=== PATIENT | female | born 2000 | race Caucasian/White ===

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

== ENCOUNTER 2019-02-07 02:00 | Inpatient (IN) | payer OTHER ==
[2019-02-07] MEDS ORDERED: METHYLERGONOVINE 0.2 MG/ML 1 ML AMP IM PRN (03:03)
[2019-02-07] MEDS ORDERED: OXYTOCIN 10 UNIT/ML 1 ML VIAL IM PRN (03:03)
[2019-02-07] MEDS ORDERED: LIDOCAINE 0.5% (PF) 5 MG/ML (50 ML SDV) SQ PRN (03:03)
[2019-02-07] MEDS ORDERED: CARBOPROST TROMETHAMINE 250 MCG/ML 1 ML AMP IM PRN (03:03)
[2019-02-07] MEDS ORDERED: TERBUTALINE 1 MG/ML VIAL SQ PRN (03:03)
[2019-02-07] MEDS ORDERED: LACTATED RINGERS 1,000 ML IV SCH (03:15)
[2019-02-07] MEDS ORDERED: OXYTOCIN 30 UNITS/500 ML NS 30 UNIT in SALINE 1 500ML.BAG IV SCH (03:15)
[2019-02-07 03:19] VITALS: BMI 38.6
[2019-02-07 03:28] LABS: Basophils % (A) 0 %; Eosinophils # (A) 0.3 k/uL (0-0.7); Eosinophils % (A) 2 %; HCT 43.4 % (34.0-46.0); HGB 14.6 gm/dL (11.4-16.0); Lymphocytes # (A) 2.2 k/uL (1.0-4.8); Lymphocytes % (A) 19 %; MCH 30.4 pg (25.0-35.0); MCHC 33.8 g/dL (31.0-37.0); Mean Platelet Volume 7.5; Monocytes # (A) 0.4 k/uL (0-1.0); Monocytes % (A) 3 %; Neutrophils # (A) 8.8 k/uL (1.3-7.7); Neutrophils % (A) 74 %; Platelet Count 192 k/uL (150-450); RBC 4.82 m/uL (3.80-5.40); RDW 13.6 % (11.5-15.5); WBC 11.9 k/uL (4.0-11.0)
[2019-02-07 03:34] LABS: Appearance,Urine Cloudy (Clear); Bilirubin,Urine Negative (Negative); Blood,Urine Moderate (Negative); Color,Urine Yellow; Glucose,Urine (UA) Negative (Negative); Ketones,Urine Negative (Negative); Leukocyte Esterase,Urine Large (Negative); Mucus,Urine Rare /hpf; Nitrite,Urine Negative (Negative); PH, Urine 6.5 (5.0-8.0); Protein,Urine 1+ (Negative); RBC,Urine >182 /hpf (0-5); Specific Gravity,Urine 1.021 (1.001-1.035); Squamous Epithelial Cell,Urine 15 /hpf (0-4); Urobilinogen,Urine <2.0 mg/dL (<2.0); WBC,Urine 35 /hpf (0-5)
[2019-02-07 03:35] LABS: ALT 21 U/L (9-52); AST 21 U/L (14-36); African American GFR (CKD) >90 (>60 ml/min/1.73 sqM); Blood Urea Nitrogen 13 mg/dL (7-17); LDH 489 U/L (313-618); Uric Acid 6.2 mg/dL (3.7-7.4)
[2019-02-07 03:43] LABS: Amphetamine Screen,Urine Not Detected (NotDetected); Barbiturate Screen,Urine Not Detected (NotDetected); Benzodiazepines Screen,Urine Not Detected (NotDetected); Cocaine Screen,Urine Not Detected (NotDetected); Methadone Screen, Urine Not Detected (NotDetected); Opiate Screen,Urine Not Detected (NotDetected); Oxycodone Screen, Urine Not Detected (NotDetected); Phencyclidine Screen,Urine Not Detected (NotDetected); Tricyclic Antidepressant,Urine Not Detected (NotDetected); Urn Cannabinoid Scrn Detected (NotDetected)
[2019-02-07 03:46] LABS: Creatinine,Urine Random 97.5 mg/dL
[2019-02-07] MEDS ORDERED: ROPIVACAINE 5MG/ML 20ML VIAL ONE (07:21)
[2019-02-07] MEDS ORDERED: SODIUM CHLORIDE 0.9% 100 ML BAG ONE (07:21)
[2019-02-07] MEDS ORDERED: fentaNYL (PF) 50 MCG/ML 5 ML AMP ONE (07:21)
--- NOTE | 2019-02-07 07:41 | P.HPOB ---
History of Present Illness H&P Date: 02/07/19 Chief Complaint: Bleeding since Friday This patient is a 19-year-old 1 para 0 female estimated date of confinement 02/14/2019 estimated gestational age 39 weeks who presents to labor and delivery with complaints of bleeding that began after her exam in the office on Friday. Patient states that she had some bleeding after exam is increased in flow over the last day or so. care is per Dr. Bhat appears to be complicated by daily marijuana use. Patient states that she has a medical marijuana card and she's been taking it for her scoliosis. otherwise appears uncomplicated. Patient's blood pressure today is elevated on admission. Preeclampsia blood work is negative and she does deny any symptoms at this time. Review of Systems Genitourinary: Reports Menstruation: Reports as per HPI, Reports amenorrhea Past Medical History Past Medical History: No Reported History Additional Past Medical History / Comment(s): Patient reports a history of scoliosis for which she takes medical marijuana for. History of Any Multi-Drug Resistant Organisms: MRSA Date of last positivie culture/infection: 2010 MDRO Source:: skin Past Surgical History: Ear Surgery, Tonsillectomy Additional Past Surgical History / Comment(s): adenoids Past Anesthesia/Blood Transfusion Reactions: No Reported Reaction Past Psychological History: No Psychological Hx Reported Smoking Status: Never smoker Past Alcohol Use History: None Reported Past Drug Use History: None Reported - Past Family History Mother Family Medical History: No Reported History Medications and Allergies Home Medications Medication Instructions Recorded Confirmed Type Pnv,Calcium 72/Iron/Folic Acid 1 each PO DAILY 12/28/18 02/07/19 History [ Plus Tablet] Allergies Allergy/AdvReac Type Severity Reaction Status Date / Time No Known Allergies Allergy Verified 02/07/19 02:09 Exam Vital Signs Resp BP 02/07/19 02:50 18 136/94 Intake and Output 02/06/19 02/07/19 02/07/19 22:59 06:59 14:59 Intake Total 1000 Balance 1000 Intake: Intake, IV Titration 1000 Amount Lactated Ringers 1,000 ml 1000 @ 125 mls/hr IV .Q8H [facility] Rx#:[id number] Other: # Voids 3 Weight 89.811 kg - OBG Physical Exam Abdomen: bowel sounds normal, no diffuse tenderness, no bruit present, no guarding noted, no hepatomegaly, no splenomegaly, no mass Vulva: both: normal Vagina: normal moisture, no discharge Cervix: no lesion (Cervix is 2 cm dilated 90% effaced.), no discharge Uterus: enlarged (Fundal height in the office was 38 cm) Results blood work shows she is A positive, rubella immune, RPR nonreactive, hepatitis B negative, HIV is nonreactive, Glucola was normal, most recent ultrasound showed 5 lbs. 7 oz. which is the 41st percentile. Toxicology screen is positive twice for THC. Result Diagrams: 02/07/19 03:10 02/07/19 03:10 Abnormal Lab Results - Last 24 Hours (Table) 02/07/19 02/07/19 02/07/19 Range/Units 02:20 02:20 02:20 WBC (4.0-11.0) k/uL Neutrophils # (1.3-7.7) k/uL Urine Appearance Cloudy H (Clear) Urine Protein 1+ H (Negative) Urine Blood Moderate H (Negative) Ur Leukocyte Esterase Large H (Negative) Urine RBC >182 H (0-5) /hpf Urine WBC 35 H (0-5) /hpf Ur Squamous Epith Cells 15 H (0-4) /hpf Urine Mucus Rare H (None) /hpf U Random Total Protein 26 H (<12) mg/dL U Marijuana (THC) Screen Detected H (NotDetected) 02/07/19 Range/Units 03:10 WBC 11.9 H (4.0-11.0) k/uL Neutrophils # 8.8 H (1.3-7.7) k/uL Urine Appearance (Clear) Urine Protein (Negative) Urine Blood (Negative) Ur Leukocyte Esterase (Negative) Urine RBC (0-5) /hpf Urine WBC (0-5) /hpf Ur Squamous Epith Cells (0-4) /hpf Urine Mucus (None) /hpf U Random Total Protein (<12) mg/dL U Marijuana (THC) Screen (NotDetected) Assessment and Plan Assessment: This is a 19-year-old 1 para 0 female 39 weeks gestation admitted to labor and delivery with complaints of bleeding for approximately 2 days. This bleeding appears to be traumatic in nature from her most recent cervical exam and there is no evidence of abruption or other sources of her bleeding. Patient however is found to have persistent elevated blood pressures consistent with gestational hypertension and for this reason I recommended she proceed with delivery at this time. There is no evidence of preeclampsia. Plan is induction of labor and anticipate vaginal delivery. Patient also was counseled about her marijuana use and appears that she's been taking this on a daily basis throughout the . She understands in general this is not recommended in and we do not know the side effects, short-term or long-term. We'll also obtain a social work faculty member consult to ensure safe home environment. 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
[2019-02-07] MEDS ORDERED: diphenhydrAMINE 25 MG CAP PO PRN (12:02)
[2019-02-07] MEDS ORDERED: SIMETHICONE 80 MG CHEWABLE PO PRN (12:02)
[2019-02-07] MEDS ORDERED: LANOLIN CREAM 5 GM TUBE TOPICAL PRN (12:02)
[2019-02-07] MEDS ORDERED: WITCH HAZEL 1 EACH MED..PAD TOPICAL PRN (12:02)
[2019-02-07] MEDS ORDERED: ACETAMINOPHEN TAB 325 MG TAB PO PRN (12:02)
[2019-02-07] MEDS ORDERED: HYDROCORTISONE 2.5% RECTAL CREAM 30 GM TUBE RECTAL PRN (12:02)
[2019-02-07] MEDS ORDERED: BENZOCAINE/MENTHOL SPRAY 1 GM/SPRAY AEROSOL TOPICAL PRN (12:02)
[2019-02-07] MEDS ORDERED: diphenhydrAMINE 50 MG/ML 1 ML VIAL IVP PRN (12:02)
[2019-02-07] MEDS ORDERED: ZOLPIDEM 5 MG TAB PO PRN (12:02)
[2019-02-07] MEDS ORDERED: BISACODYL 10 MG SUPP RECTAL PRN (12:02)
--- NOTE | 2019-02-07 12:06 | P.PROBDLV ---
Vaginal Delivery Note - . Vaginal Delivery Note: Normal vaginal delivery viable male infant Apgars 9 and 9 delivery time is 1150 hrs. Please see dictated H&P for intimate details of this patient's admission. Brief summary this pleasant 19-year-old 1 para 0 female estimated gestational age 39 weeks presents to labor and delivery complaining of bleeding. Patient was found to be probably in early labor but also had elevated blood pressures. Preeclampsia labs were negative. Artificial rupture membranes done at 2 cm for clear fluid. Labor is augmented with Pitocin. Patient's labor progresses and she does get an epidural for pain control. Patient gets to complete pushes and pushes the head to the perineum. Posterior perineum is supported we have controlled delivery of 's head over the intact perineum. Mouth and nares are bulb suctioned. There is no evidence of a nuchal cord. With gentle downward traction we then have deliver the anterior and posterior shoulder and rest this infant's body. This is a vigorous viable male infant Apgars are 9 and 9 delivery time is 1150 hrs. After delivery of the the infant's later mother's abdomen after the cord is done pulsating is doubly clamped and cut. It does appear to be trivascular. The placenta is then spontaneously delivered intact. Inspection of the perineum shows a first-degree laceration is repaired with 3-0 Vicryl suture easily [id number] stitch. There is bilateral periurethral lacerations did not require repair. All counts are correct 3. EBL's 100 mL there are no complications. Infant and mother stable delivery room.
[2019-02-07] MEDS ORDERED: OXYTOCIN 20 UNITS/1000 ML NS 1,000 ML IV SCH (12:15)
[2019-02-07] MEDS: SENNOSIDES-DOCUSATE SODIUM 1 EACH TAB PO SCH (19:56)
[2019-02-07] MEDS: IBUPROFEN 600 MG TAB PO PRN (23:53)
--- NOTE | 2019-02-08 06:41 | P.PNOBGVD ---
Subjective - Subjective Patient reports: Reports appetite normal, Reports voiding normally, Reports pain well controlled, Reports ambulating normally : doing well Objective - Latest Vital Signs Latest vital signs: Vital Signs Temp Pulse Resp BP 02/07/19 23:55 97.9 F 88 18 133/78 02/07/19 19:52 98.4 F 90 16 141/83 02/07/19 15:44 98.6 F 90 16 126/61 02/07/19 14:07 102 H 16 136/75 02/07/19 13:37 16 135/60 02/07/19 13:07 96 16 124/70 02/07/19 12:52 105 H 16 109/78 02/07/19 12:37 100 16 125/76 02/07/19 12:22 98.3 F 102 H 16 124/68 02/07/19 12:07 113 H 16 127/85 Intake and Output 02/07/19 02/07/19 02/08/19 14:59 22:59 06:59 Intake Total 2000 600 Output Total 100 Balance 1900 600 Intake: IV 2000 Lactated Ringers 1,000 ml 2000 @ 125 mls/hr IV .Q8H [facility] Rx#:[id number] Oral 600 Output: Estimated Blood Loss 100 Other: # Voids 1 3 - Exam Lungs: bilateral: normal Chest: Normal S1, Normal S2 Extremities: Present: normal Abdomen: Present: normal appearance, soft Uterus: Present: normal, firm Assessment and Plan Assessment: day #1. Patient is resting without new complaints and wishes to go home. Vital signs are stable she is afebrile. Uterus is firm nontender and she is having normal lochia. I impression this is a normal course. Plan is to continue routine care and discharge home later today. (1) 39 weeks gestation of Current Visit: Yes Status: Acute Code(s): Z3A.39 - 39 WEEKS GESTATION OF SNOMED Code(s): 36963994 (2) Gestational hypertension Current Visit: Yes Status: Acute Code(s): O13.9 - GESTATIONAL HTN W/O SIGNIFICANT PROTEINURIA, UNSP TRIMESTER SNOMED Code(s): 647663765 (3) Substance abuse affecting in third trimester, antepartum Current Visit: Yes Status: Acute Code(s): O99.323 - DRUG USE COMPLICATING , THIRD TRIMESTER SNOMED Code(s): 99904143
--- NOTE | 2019-02-08 06:45 | P.DS ---
Providers Date of admission: 02/07/19 02:50 Expected date of discharge: 02/08/19 Attending physician: Abeba Bhat Primary care physician: Stated None - Discharge Diagnosis(es) (1) 39 weeks gestation of Current Visit: Yes Status: Acute (2) Gestational hypertension Current Visit: Yes Status: Acute (3) Substance abuse affecting in third trimester, antepartum Current Visit: Yes Status: Acute Hospital Course: Please see dictated H&P for intimate details of this patient's admission. Brief summary this is a 19-year-old 1 para 0 female 39 weeks gestation admitted in labor and delivery for persistent vaginal bleeding after an examination and was found not to be in labor but had some elevated blood pressures. Patient's preeclampsia evaluation was negative and we'll proceed with induction of labor. Patient was on have a vaginal delivery viable male infant. Please see dictated delivery note. day #1 patient was doing well wishes to go home. Patient's felt stable for discharge home follow up with Dr. Bhat and 6 weeks. Procedures: Induction of labor normal vaginal delivery Patient Condition at Discharge: Good Plan - Discharge Summary New Discharge Prescriptions: New Ibuprofen [Motrin] 600 mg PO Q6HR PRN #30 tab PRN Reason: Mild Pain Or Fever >= 100.5 No Action Pnv,Calcium 72/Iron/Folic Acid [ Plus Tablet] 1 each PO DAILY Discharge Medication List Pnv,Calcium 72/Iron/Folic Acid [ Plus Tablet] 1 each PO DAILY 12/28/18 [History] Ibuprofen [Motrin] 600 mg PO Q6HR PRN #30 tab 02/08/19 [Rx] Follow up Appointment(s)/Referral(s): Abeba Bhat DO [Doctor of Osteopathic Medicine] - 6 Weeks Patient Instructions/Handouts: Vaginal Delivery (DC) Activity/Diet/Wound Care/Special Instructions: No intercourse or anything per vagina for 6 weeks. Please call if any fever, chills, excessive vaginal bleeding, and/or abdominal pain. Discharge Disposition: HOME SELF-CARE
[2019-02-08] MEDS: SENNOSIDES-DOCUSATE SODIUM 1 EACH TAB PO SCH ×2 (10:06→22:38)
[2019-02-08] MEDS ORDERED: LABETALOL 100 MG TAB PO PRN (12:24)
[2019-02-08] MEDS: IBUPROFEN 600 MG TAB PO PRN (19:44)
[2019-02-08 19:47] VITALS: RESP 16
--- NOTE | 2019-02-09 05:59 | P.PNOBGVD ---
Subjective - Subjective Patient reports: Reports appetite normal, Reports voiding normally, Reports pain well controlled, Reports ambulating normally : doing well Objective - Latest Vital Signs Latest vital signs: Vital Signs Temp Pulse Resp BP BP 02/09/19 00:00 98.2 F 76 16 130/80 02/08/19 19:46 98.3 F 83 16 136/83 02/08/19 15:11 98.2 F 84 18 144/83 02/08/19 13:39 88 143/79 02/08/19 12:06 97.8 F 88 18 132/90 151/92 02/08/19 08:00 98.5 F 84 16 126/78 Intake and Output 02/08/19 02/08/19 02/09/19 14:59 22:59 06:59 Other: # Voids 1 1 2 - Exam Lungs: bilateral: normal Chest: Normal S1, Normal S2 Extremities: Present: normal Abdomen: Present: normal appearance, soft Uterus: Present: normal, firm Assessment and Plan Assessment: day #2. Patient had 1 elevated blood pressure yesterday and therefore I asked her to stay another day for observation. Blood pressures have been fine therefore she is felt to be stable for discharge home. Patient discharge home follow up in the office. (1) 39 weeks gestation of Current Visit: Yes Status: Acute Code(s): Z3A.39 - 39 WEEKS GESTATION OF SNOMED Code(s): 43760075 (2) Gestational hypertension Current Visit: Yes Status: Acute Code(s): O13.9 - GESTATIONAL HTN W/O SIGNIFICANT PROTEINURIA, UNSP TRIMESTER SNOMED Code(s): 911356546 (3) Substance abuse affecting in third trimester, antepartum Current Visit: Yes Status: Acute Code(s): O99.323 - DRUG USE COMPLICATING , THIRD TRIMESTER SNOMED Code(s): 47397398
[2019-02-09] MEDS: SENNOSIDES-DOCUSATE SODIUM 1 EACH TAB PO SCH (08:04)
[2019-02-09 08:08] VITALS: BP 130/87; PULSE 84; TEMP 98.1
== END 2019-02-09 13:35 | disposition home or self-care (01) | DRG 807 ==
LOC: FBPOP 02:00 → 4FBP 02:50
PROVIDERS: ADMIT Obstetrics & Gynecology; ATTEND Obstetrics & Gynecology
PROC: 10E0XZZ Delivery of Products of Conception, External Approach (ICD-10-PCS; principal; 2019-02-07)
PROC: 0HQ9XZZ Repair Perineum Skin, External Approach (ICD-10-PCS; 2019-02-07)
PROC: 00HU33Z Insertion of Infusion Device into Spinal Canal, Percutaneous Approach (ICD-10-PCS; 2019-02-07)
PROC: 3E0R3NZ Introduction of Analgesics, Hypnotics, Sedatives into Spinal Canal, Percutaneous Approach (ICD-10-PCS; 2019-02-07)
DX: O13.4 Gestational [pregnancy-induced] hypertension without significant proteinuria, complicating childbirth (principal); Z37.0 Single live birth; F12.10 Cannabis abuse, uncomplicated; O99.324 Drug use complicating childbirth; O99.89 Other specified diseases and conditions complicating pregnancy, childbirth and the puerperium; M41.9 Scoliosis, unspecified; Z3A.39 39 weeks gestation of pregnancy; O70.0 First degree perineal laceration during delivery; O71.82 Other specified trauma to perineum and vulva; Z71.51 Drug abuse counseling and surveillance of drug abuser; Z98.890 Other specified postprocedural states; Z86.14 Personal history of Methicillin resistant Staphylococcus aureus infection
CPT/HCPCS: 59025; 80306; 81001; 82565; 82570; 83615; 84112; 84156; 84450; 84460; 84520; 84550; 85025; 86850; 86900; 86901; 99213

== ENCOUNTER → 2019-04-05 | Outpatient (CLI) | payer OTHER | END | disposition home or self-care (01) | LOC: LABWHC1 13:50 | PROVIDERS: ATTEND Obstetrics & Gynecology | DX: N92.6 Irregular menstruation, unspecified (principal) | CPT/HCPCS: 36415; 84702 ==

== ENCOUNTER 2019-06-18 18:01 | Emergency (ER) | payer OTHER ==
[2019-06-18 18:11] VITALS: RESP 18
[2019-06-18] MEDS ORDERED: FLUTICASONE 50MCG/SPRAY NASAL 16GM EA NOSTRIL STA (19:02)
--- NOTE | 2019-06-18 19:25 | XR ---
EXAMINATION TYPE: XR chest 2V DATE OF EXAM: 06/18/2019 COMPARISON: None HISTORY: Cough TECHNIQUE: Frontal and lateral views of the chest are obtained. FINDINGS: Heart and mediastinum are normal. Lungs are clear. Diaphragm is normal. Bony thorax appear s normal. IMPRESSION: Normal chest.
--- NOTE | 2019-06-18 19:47 | ED ---
General Adult HPI - General Chief complaint: Upper Respiratory Infection Stated complaint: Cough Time Seen by Provider: 06/18/19 18:20 Source: patient, RN notes reviewed, old records reviewed Mode of arrival: ambulatory Limitations: no limitations - History of Present Illness Initial comments: 19-year-old female patient with no pertinent past medical history presents the chief complaint of approximately 2 days of cough, congestion, waxing and waning body aches. Patient states that she cannot be due to nexplanon. Denies any dysuria. Denies any fevers. Denies any other complaints. Systemic: Pt denies fatigue, fever/chills, rash. Pt denies weakness, night sweats, weight loss. Neuro: Pt denies headache, visual disturbances, syncope or pre-syncope. HEENT: Pt denies ocular discharge or irritation, otalgia, rhinorrhea, pharyngitis or notable lymphadenopathy. Cardiopulmonary: Pt denies chest pain, SOB, heart palpitations, dyspnea on exer tion. Abdominal/GI: Pt denies abdominal pain, n/v/d. : Pt denies dysuria, burning w/ urination, frequency/urgency. Denies new onset urinary or bowel incontinence. MSK: Pt denies myalgia, loss of strength or function in extremities. Neuro: Pt denies new onset weakness, paresthesias. - Related Data Home Medications Medication Instructions Recorded Confirmed Pnv,Calcium 72/Iron/Folic Acid 1 each PO DAILY 12/28/18 02/07/19 [ Plus Tablet] Previous Rx's Medication Instructions Recorded Ibuprofen [Motrin] 600 mg PO Q6HR PRN #30 tab 02/08/19 Allergies Allergy/AdvReac Type Severity Reaction Status Date / Time No Known Allergies Allergy Verified 06/18/19 18:11 Review of Systems ROS Statement: Those systems with pertinent positive or pertinent negative responses have been documented in the HPI. ROS Other: All systems not noted in ROS Statement are negative. Past Medical History Past Medical History: No Reported History Additional Past Medical History / Comment(s): history of scoliosis for which she takes medical marijuana for. History of Any Multi-Drug Resistant Organisms: MRSA Date of last positivie culture/infection: 2010 MDRO Source:: skin Past Surgical History: Ear Surgery, Tonsillectomy Additional Past Surgical History / Comment(s): adenoids Past Anesthesia/Blood Transfusion Reactions: No Reported Reaction Past Psychological History: No Psychological Hx Reported Smoking Status: Current every day smoker Past Alcohol Use History: Occasional Past Drug Use History: Marijuana - Past Family History Mother Family Medical History: No Reported History General Exam - General Exam Comments Initial Comments: Constitutional: NAD, AOX3, Pt has pleasant affect. HEENT: NC/AT, trachea midline, neck supple, no lymphadenopathy. Posterior pharynx non erythematous, without exudates. External ears appear normal, without discharge. Mucous membranes moist. Eyes PERRLA, EOM intact. There is no scleral icterus. No pallor noted. Cardiopulmonary: RRR, no murmurs, rubs or gallops, no JVD noted. Lungs CTAB in anterior and posterior . No peripheral edema. Abdominal exam: Abdomen soft and non-distended. Abdomen non-tender to palpation in all 4 quadrants. Bowel sounds active in LLQ. No hepatosplenomegaly. No ecchymosis Neuro: CN II-XII intact. No nuchal rigidity. No raccon eyes, no nesbitt sign, no hemotympanum. No cervical spinal tenderness. MSK: No posterior calf tenderness bilaterally, homans sign negative bilaterally. Posterior tibialis and radial pulse +2 bilaterally. Sensation intact in upper and lower extremities. Full active ROM in upper and lower extremities, 5/5 stregnth. Limitations: no limitations Course Vital Signs 06/18/19 06/18/19 18:08 18:11 Temperature 97.8 F Pulse Rate 104 H Respiratory 18 18 Rate Blood Pressure 128/83 O2 Sat by Pulse 98 Oximetry Medical Decision Making - Medical Decision Making 19-year-old female patient presents to ED chief complaint of cough, congestion, myalgias. Report has gone for approximately 2 days. Denies any other complaints. Physical exam did not slightly pathology. Influenza negative. Chest: Negative. Patient likely experiencing a viral syndrome. Will be started on Flonase and supportive care. Case discussed with Dr. Ortega. - Lab Data Lab Results 06/18/19 Range/Units 18:45 Influenza Type A RNA Not Detected (Not Detectd) Influenza Type B (PCR) Not Detected (Not Detectd) Disposition Clinical Impression: Viral syndrome Disposition: HOME SELF-CARE Condition: Stable Instructions (If sedation given, give patient instructions): Viral Syndrome (ED) Additional Instructions: Patient to adhere to previously discussed treatment plan and will take medication(s) as directed. Patient to follow up with PCP in 1-2 days. Patient to return to ED if symptoms do not improve. Follow-up with primary care provider Friday. Use Tylenol Motrin as needed. Drink lots of fluids. Use Flonase as directed for sinus congestion. Return to ER if condition worsens. Is patient prescribed a controlled substance at d/c from ED?: No Referrals: None,Stated [Primary Care Provider] - 1-2 days
[2019-06-18 20:00] VITALS: BP 117/90; PULSE 92; TEMP 98.1
== END 2019-06-18 20:00 | disposition home or self-care (01) ==
LOC: EC 18:01
DX: B34.9 Viral infection, unspecified (principal); F17.200 Nicotine dependence, unspecified, uncomplicated
CPT/HCPCS: 71046; 87502; 99284

== ENCOUNTER 2019-08-25 15:47 | Emergency (ER) | payer OTHER ==
[2019-08-25 15:55] VITALS: TEMP 98
--- NOTE | 2019-08-25 16:32 | ED ---
ENT HPI - General Chief complaint: ENT Stated complaint: Ear ache, headache Time Seen by Provider: 08/25/19 16:17 Source: patient Mode of arrival: ambulatory Limitations: no limitations - History of Present Illness Initial comments: 19-year-old female presenting for congestion ear pain slight headache. Patient states that last week she has had some congestion very mild cough however for the past 2 days she has had increasing left ear pain denies fevers denies body aches. Patient denies any specific sick contacts but states that her daughter has had congestion and cough as well. Patient denies any hearing loss denies dizziness swelling behind the ear denies abdominal pain nausea vomiting . Patient denies current headache states it comes and goes denies neck stiffness or photophobia. Patient denies this being the worse headache of her life or sudden onset. Review of systems negative upon arrival patient appears well and nontoxic afebrile - Related Data Previous Rx's Medication Instructions Recorded Azithromycin [Zithromax Z-pack] 0 mg PO DIRECTED #6 tab 08/25/19 Allergies Allergy/AdvReac Type Severity Reaction Status Date / Time No Known Allergies Allergy Verified 08/25/19 15:55 Review of Systems ROS Statement: Those systems with pertinent positive or pertinent negative responses have been documented in the HPI. ROS Other: All systems not noted in ROS Statement are negative. Past Medical History Past Medical History: No Reported History Additional Past Medical History / Comment(s): history of scoliosis for which she takes medical marijuana for. History of Any Multi-Drug Resistant Organisms: MRSA Date of last positivie culture/infection: 2010 MDRO Source:: skin Past Surgical History: Ear Surgery, Tonsillectomy Additional Past Surgical History / Comment(s): adenoids Past Anesthesia/Blood Transfusion Reactions: No Reported Reaction Past Psychological History: No Psychological Hx Reported Smoking Status: Current every day smoker Past Alcohol Use History: Occasional Past Drug Use History: Marijuana - Past Family History Mother Family Medical History: No Reported History General Exam - General Exam Comments Initial Comments: General: The patient is awake and alert, in no distress, and does not appear acutely ill. Eye: +3 mm pupils are equal, round and reactive to light, extra-ocular m ovements are intact. No nystagmus. There is normal conjunctiva bilaterally. No signs of icterus. No photophobia Ears, nose, mouth and throat: There are moist mucous membranes and no oral lesions. Oropharynx was not erythematous there is no tonsillar enlargement exudates or lesions. Uvula midline. Right tympanic membranes are not erythematous or is no effusions bulging or retraction. Left TM is erythematous no bulging or peforation noted, howver partial view given cerumen>E AC WNL b/l. No tenderness to palpation of the mastoid. No anterior cervical lymphadenop athy. Rhinorrhea, clear and bilateral nares. No tripoding, no drooling. Neck: The neck is supple, there is no tenderness or JVD. No nuchal rigidity negative Cardiovascular: There is a regular rate and rhythm. No murmur, rub or gallop is appreciated. Respiratory: Lungs are clear to auscultation, respirations are non-labored, breath sounds are equal. No wheezes, stridor, rales, or rhonchi. No retractions or abdominal breathing. Gastrointestinal: Soft, non-distended, non-tender abdomen without masses or organomegaly noted. There is no rebound or guarding present. Bowel sounds are unremarkable. Musculoskeletal: Normal ROM, no tenderness. Strength 5/5. Sensation intact. Radial pulses equal bilaterally 2+. Neurological: A&O x 3. CN II-XII intact grossly, There are no obvious motor or sensory deficits. Coordination appears grossly intact. Speech appears normal, no muffling. Skin: Skin is warm and dry and no rashes or lesions are noted. No extremity edema Psychiatric: Cooperative Limitations: no limitations Course Vital Signs 08/25/19 08/25/19 15:52 17:02 Temperature 98.0 F Pulse Rate 99 88 Respiratory 20 18 Rate Blood Pressure 127/90 128/88 O2 Sat by Pulse 99 98 Oximetry Medical Decision Making - Medical Decision Making 19-year-old female presenting for upper respiratory symptoms left ear pain findings consistent with otitis media. No meningismus. She is very nontoxic in appearance no tenderness to palpation of the mastoid. Patient states she has an amoxicillin ALLERGY, she states she had a very bad rash. Patient lung clear, no fevers. Will be treated with azithromycin and given PCP f/u. She is agreeable with this care plan discharge at this time Disposition Clinical Impression: Left ear pain, Otitis media, Congestion of nasal sinus Disposition: HOME SELF-CARE Condition: Good Instructions (If sedation given, give patient instructions): Ear Infection (ED) Additional Instructions: Please use medication as discussed. Please follow-up with family doctor in the next 2 days. Please return to emergency room if the symptoms increase or worsen or for any other concerns. Prescriptions: Azithromycin [Zithromax Z-pack] 0 mg PO DIRECTED #6 tab Is patient prescribed a controlled substance at d/c from ED?: No Referrals: None,Stated [Primary Care Provider] - 1-2 days Time of Disposition: 16:32
[2019-08-25 17:03] VITALS: BP 128/88; PULSE 88; RESP 18
== END 2019-08-25 17:02 | disposition home or self-care (01) ==
LOC: EC 15:47
DX: H66.92 Otitis media, unspecified, left ear (principal); R09.81 Nasal congestion; R05 Cough; F17.200 Nicotine dependence, unspecified, uncomplicated; Z88.0 Allergy status to penicillin; Z86.14 Personal history of Methicillin resistant Staphylococcus aureus infection; Z87.39 Personal history of other diseases of the musculoskeletal system and connective tissue; Z90.89 Acquired absence of other organs; Z98.890 Other specified postprocedural states
CPT/HCPCS: 99283

== ENCOUNTER 2020-02-15 12:18 | Emergency (ER) | payer OTHER ==
[2020-02-15 12:26] VITALS: RESP 16
[2020-02-15] MEDS ORDERED: MORPHINE SULFATE 2 MG/ML SYRINGE IVP ONE (12:36)
[2020-02-15] MEDS ORDERED: ONDANSETRON 4 MG/2 ML VIAL IVP STA (12:36)
[2020-02-15] MEDS ORDERED: SODIUM CHLORIDE 0.9% 500 ML 500 ML IV STA (12:36)
[2020-02-15 13:09] LABS: Basophils % (A) 0 %; Eosinophils # (A) 0.2 k/uL (0-0.7); Eosinophils % (A) 2 %; HCT 46.8 % (34.0-46.0); HGB 15.6 gm/dL (11.4-16.0); Lymphocytes # (A) 1.6 k/uL (1.0-4.8); Lymphocytes % (A) 20 %; MCH 29.8 pg (25.0-35.0); MCHC 33.3 g/dL (31.0-37.0); MCV 89.5 fL (80.0-100.0); Mean Platelet Volume 7.3; Monocytes # (A) 0.3 k/uL (0-1.0); Monocytes % (A) 3 %; Neutrophils # (A) 5.8 k/uL (1.3-7.7); Neutrophils % (A) 73 %; Platelet Count 295 k/uL (150-450); RBC 5.23 m/uL (3.80-5.40); RDW 13.7 % (11.5-15.5)
[2020-02-15 13:16] LABS: ALT 40 U/L (4-34); AST 32 U/L (14-36); African American GFR (CKD) >90 (>60 ml/min/1.73 sqM); Albumin 4.4 g/dL (3.5-5.0); Alkaline Phosphatase 82 U/L (38-126); Anion Gap 8 mmol/L; Blood Urea Nitrogen 11 mg/dL (7-17); Calcium 9.4 mg/dL (8.4-10.2); Carbon Dioxide 22 mmol/L (22-30); Chloride 108 mmol/L (98-107); Glucose 97 mg/dL (74-99); Non-African American GFR(CKD) >90 (>60 ml/min/1.73 sqM); Potassium 4.7 mmol/L (3.5-5.1); Sodium 138 mmol/L (137-145); Total Bilirubin 0.3 mg/dL (0.2-1.3); Total Protein 7.5 g/dL (6.3-8.2)
--- NOTE | 2020-02-15 13:20 | ED ---
Abdominal Pain HPI - General Source: patient, RN notes reviewed Mode of arrival: ambulatory Limitations: no limitations <Fady Chicas - Last Filed: 02/15/20 13:19> <Zackary Giang - Last Filed: 02/15/20 14:44> - General Chief Complaint: Abdominal Pain Stated Complaint: pelvic/abd pain Time Seen by Provider: 02/15/20 12:30 - History of Present Illness Initial Comments: 20-year-old female presents emergency Department chief complaint of lower abdominal pain. Patient stated it started this morning shortly after going to the bathroom. She denies any dysuria hematuria, constipation or diarrhea. She has minimal nausea no vomiting her last mental cycle was 2 weeks ago denies any chance . She said no prior abdominal surgeries. Denies any back pain, flank pain fevers or chills. She states nothing makes it feel better or worse she does not take any medications for this. (Fady Chicas) - Related Data Previous Rx's Medication Instructions Recorded Azithromycin [Zithromax Z-pack] 0 mg PO DIRECTED #6 tab 08/25/19 Allergies Allergy/AdvReac Type Severity Reaction Status Date / Time No Known Allergies Allergy Verified 02/15/20 12:26 Review of Systems ROS Other: All systems not noted in ROS Statement are negative. <Fady Chicas - Last Filed: 02/15/20 13:19> ROS Other: All systems not noted in ROS Statement are negative. <Zackary Giang - Last Filed: 02/15/20 14:44> ROS Statement: Those systems with pertinent positive or pertinent negative responses have been documented in the HPI. Past Medical History Past Medical History: No Reported History Additional Past Medical History / Comment(s): history of scoliosis for which she takes medical marijuana for. History of Any Multi-Drug Resistant Organisms: MRSA Date of last positivie culture/infection: 2010 MDRO Source:: skin Past Surgical History: Ear Surgery, Tonsillectomy Additional Past Surgical History / Comment(s): adenoids Past Anesthesia/Blood Transfusion Reactions: No Reported Reaction Past Psychological History: No Psychological Hx Reported Smoking Status: Current every day smoker Past Alcohol Use History: Occasional Past Drug Use History: Marijuana - Past Family History Mother Family Medical History: No Reported History <Fady Chicas - Last Filed: 02/15/20 13:19> General Exam Limitations: no limitations General appearance: alert, in no apparent distress Head exam: Present: atraumatic, normocephalic, normal inspection Eye exam: Present: normal appearance, PERRL, EOMI. Absent: scleral icterus, conjunctival injection, periorbital swelling Respiratory exam: Present: normal lung sounds bilaterally. Absent: respiratory distress, wheezes, rales, rhonchi, stridor Cardiovascular Exam: Present: regular rate, normal rhythm, normal heart sounds. Absent: systolic murmur, diastolic murmur, rubs, gallop, clicks GI/Abdominal exam: Present: soft, tenderness (Mild to moderate lower abdominal tenderness), normal bowel sounds. Absent: distended, guarding, rebound, rigid Back exam: Absent: CVA tenderness (R), CVA tenderness (L) Neurological exam: Present: alert, oriented X3 Skin exam: Present: warm, dry, intact, normal color. Absent: rash <Fady Chicas - Last Filed: 02/15/20 13:19> Course Vital Signs 02/15/20 12:24 Temperature 98.2 F Pulse Rate 98 Respiratory 16 Rate Blood Pressure 120/78 O2 Sat by Pulse 98 Oximetry Medical Decision Making - Lab Data Result diagrams: 02/15/20 12:52 02/15/20 12:52 <Fady Chicas - Last Filed: 02/15/20 13:19> - Lab Data Result diagrams: 02/15/20 12:52 02/15/20 12:52 <Zacakry Giang P - Last Filed: 02/15/20 14:44> - Medical Decision Making Patient was signed out to me by GILBERTO Shrestha pending ultrasound report. I did reevaluate the patient and took a thorough history. Pain started this morning and is generalized across her lower abdomen. No fevers. No diarrhea. Patient has had a period 2 weeks ago. Physical exam reveals a minimally tender lower abdomen that is generalized in nature. CBC CMP is unremarkable. Urinalysis is contaminated with skin cells. This will be cultured. Patient does not have any symptoms of dysuria. Ultrasound shows findings that could represent ovarian cyst. They will also be involuting follicle within the left ovary. Follow-up MRI is indicated. Arterial and venous flow seen between both ovaries. Patient is sitting much better at this time. Patient be discharged home to follow up with primary care and her [facility]. She will return here for any worsening symptoms. I did offer a work note which she states she is much better and is planning on going to work. (Zackary Giang) - Lab Data Lab Results 02/15/20 02/15/20 02/15/20 Range/Units 12:52 12:52 12:52 WBC 8.0 (3.8-10.6) k/uL RBC 5.23 (3.80-5.40) m/uL Hgb 15.6 (11.4-16.0) gm/dL Hct 46.8 H (34.0-46.0) % MCV 89.5 (80.0-100.0) fL MCH 29.8 (25.0-35.0) pg MCHC 33.3 (31.0-37.0) g/dL RDW 13.7 (11.5-15.5) % Plt Count 295 (150-450) k/uL Neutrophils % 73 % Lymphocytes % 20 % Monocytes % 3 % Eosinophils % 2 % Basophils % 0 % Neutrophils # 5.8 (1.3-7.7) k/uL Lymphocytes # 1.6 (1.0-4.8) k/uL Monocytes # 0.3 (0-1.0) k/uL Eosinophils # 0.2 (0-0.7) k/uL Basophils # 0.0 (0-0.2) k/uL Sodium (137-145) mmol/L Potassium (3.5-5.1) mmol/L Chloride (98-107) mmol/L Carbon Dioxide (22-30) mmol/L Anion Gap mmol/L BUN (7-17) mg/dL Creatinine (0.52-1.04) mg/dL Est GFR (CKD-EPI)AfAm (>60 ml/min/1.73 sqM) Est GFR (CKD-EPI)NonAf (>60 ml/min/1.73 sqM) Glucose (74-99) mg/dL Calcium (8.4-10.2) mg/dL Total Bilirubin (0.2-1.3) mg/dL AST (14-36) U/L ALT (4-34) U/L Alkaline Phosphatase (38-126) U/L Total Protein (6.3-8.2) g/dL Albumin (3.5-5.0) g/dL Lipase (23-300) U/L Urine Color Yellow Urine Appearance Turbid H (Clear) Urine pH 6.5 (5.0-8.0) Ur Specific Aubrey 1.037 H (1.001-1.035) Urine Protein 2+ H (Negative) Urine Glucose (UA) Negative (Negative) Urine Ketones Negative (Negative) Urine Blood Trace H (Negative) Urine Nitrite Negative (Negative) Urine Bilirubin Negative (Negative) Urine Urobilinogen 2.0 (<2.0) mg/dL Ur Leukocyte Esterase Large H (Negative) Urine RBC 16 H (0-5) /hpf Urine WBC 30 H (0-5) /hpf Ur Squamous Epith Cells 199 H (0-4) /hpf Urine Bacteria Few H (None) /hpf Urine Mucus Many H (None) /hpf Urine HCG, Qual Not Detected (Not Detectd) 02/15/20 Range/Units 12:52 WBC (3.8-10.6) k/uL RBC (3.80-5.40) m/uL Hgb (11.4-16.0) gm/dL Hct (34.0-46.0) % MCV (80.0-100.0) fL MCH (25.0-35.0) pg MCHC (31.0-37.0) g/dL RDW (11.5-15.5) % Plt Count (150-450) k/uL Neutrophils % % Lymphocytes % % Monocytes % % Eosinophils % % Basophils % % Neutrophils # (1.3-7.7) k/uL Lymphocytes # (1.0-4.8) k/uL Monocytes # (0-1.0) k/uL Eosinophils # (0-0.7) k/uL Basophils # (0-0.2) k/uL Sodium 138 (137-145) mmol/L Potassium 4.7 (3.5-5.1) mmol/L Chloride 108 H (98-107) mmol/L Carbon Dioxide 22 (22-30) mmol/L Anion Gap 8 mmol/L BUN 11 (7-17) mg/dL Creatinine 0.52 (0.52-1.04) mg/dL Est GFR (CKD-EPI)AfAm >90 (>60 ml/min/1.73 sqM) Est GFR (CKD-EPI)NonAf >90 (>60 ml/min/1.73 sqM) Glucose 97 (74-99) mg/dL Calcium 9.4 (8.4-10.2) mg/dL Total Bilirubin 0.3 (0.2-1.3) mg/dL AST 32 (14-36) U/L ALT 40 H (4-34) U/L Alkaline Phosphatase 82 (38-126) U/L Total Protein 7.5 (6.3-8.2) g/dL Albumin 4.4 (3.5-5.0) g/dL Lipase 39 (23-300) U/L Urine Color Urine Appearance (Clear) Urine pH (5.0-8.0) Ur Specific Aubrey (1.001-1.035) Urine Protein (Negative) Urine Glucose (UA) (Negative) Urine Ketones (Negative) Urine Blood (Negative) Urine Nitrite (Negative) Urine Bilirubin (Negative) Urine Urobilinogen (<2.0) mg/dL Ur Leukocyte Esterase (Negative) Urine RBC (0-5) /hpf Urine WBC (0-5) /hpf Ur Squamous Epith Cells (0-4) /hpf Urine Bacteria (None) /hpf Urine Mucus (None) /hpf Urine HCG, Qual (Not Detectd) Disposition <Fady Chicas M - Last Filed: 02/15/20 13:19> Is patient prescribed a controlled substance at d/c from ED?: No Time of Disposition: 14:44 <Zackary Giang P - Last Filed: 02/15/20 14:44> Clinical Impression: Abdominal pain, Ruptured cyst of ovary Disposition: HOME SELF-CARE Condition: Good Instructions (If sedation given, give patient instructions): Abdominal Pain (ED), Ruptured Ovarian Cyst (ED) Additional Instructions: Please follow-up with your [facility] in 1-2 days. If you have any worsening symptoms or fevers return here to the emergency room. Referrals: Jj Santillan MD [REFERRING] - 1-2 days
[2020-02-15 13:48] LABS: Appearance,Urine Turbid (Clear); Bacteria,Urine Few /hpf; Bilirubin,Urine Negative (Negative); Blood,Urine Trace (Negative); Color,Urine Yellow; Glucose,Urine (UA) Negative (Negative); Ketones,Urine Negative (Negative); Leukocyte Esterase,Urine Large (Negative); Mucus,Urine Many /hpf; Nitrite,Urine Negative (Negative); PH, Urine 6.5 (5.0-8.0); Protein,Urine 2+ (Negative); RBC,Urine 16 /hpf (0-5); Specific Gravity,Urine 1.037 (1.001-1.035); Squamous Epithelial Cell,Urine 199 /hpf (0-4); WBC,Urine 30 /hpf (0-5)
--- NOTE | 2020-02-15 14:12 | US ---
EXAMINATION TYPE: US transvaginal DATE OF EXAM: 02/15/2020 COMPARISON: NONE CLINICAL HISTORY: pain. TECHNIQUE: Transvaginal (TV). Date of LMP: until 2 weeks prior EXAM MEASUREMENTS: Uterus: 8.7 x 4.1 x 5.1 cm Endometrial Stripe: 0.4 cm Right Ovary: 2.5 x 1.7 x 1.6 cm Left Ovary: 3.0 x 1.6 x 1.8 cm 1. Uterus: Anteverted wnl 2. Endometrium: wnl 3. Right Ovary: wnl 4. Left Ovary: wnl Spectral, color and waveform doppler imaging shows arterial and venous flow within the ovaries 5. Bilateral Adnexa: wnl 6. Posterior cul-de-sac: Fluid with internal debris may represent hemorrhage, pocket measures 5.2 x 2.4 x 5.2cm IMPRESSION: Findings could represent ruptured ovarian cyst, correlate, there may be involuting follic le within the left ovary MR follow-up as indicated.
[2020-02-15 14:51] VITALS: BP 128/74; PULSE 78; TEMP 98.1
== END 2020-02-15 14:50 | disposition home or self-care (01) ==
LOC: EC 12:18
DX: N83.202 Unspecified ovarian cyst, left side (principal); F17.200 Nicotine dependence, unspecified, uncomplicated
CPT/HCPCS: 36415; 80053; 83690; 85025; 81001; 81025; 87086; 76830; 99284; 96374; 96375; 96361; J2405; J2270

== ENCOUNTER 2020-11-01 21:27 | Emergency (ER) | payer OTHER ==
[2020-11-01 22:14] VITALS: BP 134/82; PULSE 84; RESP 18; TEMP 98.1
--- NOTE | 2020-11-01 22:44 | XR ---
EXAMINATION TYPE: XR wrist complete LT DATE OF EXAM: 11/01/2020 COMPARISON: NONE HISTORY: Wrist pain TECHNIQUE: 4 views FINDINGS: I see no fracture nor dislocation. Joint spaces are fairly normal. Metacarpals are intact. Carpal bones are intact. IMPRESSION: Negative left wrist exam.
--- NOTE | 2020-11-01 23:32 | ED ---
Upper Extremity HPI - General Chief Complaint: Extremity Injury, Upper Stated Complaint: L wrist pain Time Seen by Provider: 11/01/20 23:13 Source: patient, RN notes reviewed Mode of arrival: ambulatory Limitations: no limitations - History of Present Illness Initial Comments: Patient is a 20-year-old female presents emergency complaining of left wrist pain. She noted that she thinks she slept wrong last night and has continued to hurt. She does have full range of motion with some discomfort wrist extension. She denied any tenderness or previous injury or trauma to the wrist. She was in no apparent distress or pain and declined the need for any pain medication. She denied any chest pain first breath headache nausea vomiting diarrhea constip ation fever fatigue chills weakness numbness tingling. - Related Data Previous Rx's Medication Instructions Recorded Azithromycin [Zithromax Z-pack (6 0 mg PO DIRECTED #6 tab 08/25/19 tabs)] Ibuprofen [Motrin] 600 mg PO Q8HR PRN #20 tab 11/01/20 Allergies Allergy/AdvReac Type Severity Reaction Status Date / Time No Known Allergies Allergy Verified 11/01/20 22:11 Review of Systems ROS Statement: Those systems with pertinent positive or pertinent negative responses have been documented in the HPI. ROS Other: All systems not noted in ROS Statement are negative. Past Medical History Past Medical History: No Reported History Additional Past Medical History / Comment(s): history of scoliosis for which she takes medical marijuana for. History of Any Multi-Drug Resistant Organisms: MRSA Date of last positivie culture/infection: 2010, MDRO Source:: skin Past Surgical History: Adenoidectomy, Ear Surgery, Tonsillectomy Additional Past Surgical History / Comment(s): adenoids Past Anesthesia/Blood Transfusion Reactions: No Reported Reaction Past Psychological History: No Psychological Hx Reported Smoking Status: Current every day smoker Past Alcohol Use History: Rare Past Drug Use History: Marijuana - Past Family History Mother Family Medical History: No Reported History General Exam Limitations: no limitations General appearance: alert, in no apparent distress, obese Head exam: Present: atraumatic, normocephalic, normal inspection Eye exam: Present: normal appearance, PERRL, EOMI. Absent: scleral icterus, conjunctival injection, periorbital swelling ENT exam: Present: normal exam, mucous membranes moist Neck exam: Present: normal inspection. Absent: tenderness, meningismus, lymphadenopathy Respiratory exam: Present: normal lung sounds bilaterally. Absent: respiratory distress, wheezes, rales, rhonchi, stridor Cardiovascular Exam: Present: regular rate, normal rhythm, normal heart sounds. Absent: systolic murmur, diastolic murmur, rubs, gallop, clicks GI/Abdominal exam: Present: soft, normal bowel sounds. Absent: distended, tenderness, guarding, rebound, rigid Extremities exam: Present: normal inspection, full ROM (Minimal discomfort on wrist extension.), normal capillary refill. Absent: tenderness, pedal edema, joint swelling, calf tenderness Neurological exam: Present: alert, oriented X3, CN II-XII intact Psychiatric exam: Present: normal affect, normal mood Skin exam: Present: warm, dry, intact, normal color. Absent: rash Course Vital Signs 11/01/20 22:08 Temperature 98.1 F Pulse Rate 84 Respiratory 18 Rate Blood Pressure 134/82 O2 Sat by Pulse 100 Oximetry Medical Decision Making - Medical Decision Making 20-year-old female complaining of left wrist pain. X-ray x-rays ordered. X-ray with. Case discussed with Dr. Santo, patient to discharge home. - Radiology Data Radiology results: report reviewed, image reviewed Left wrist x-ray: Negative left wrist exam. Disposition Clinical Impression: Left wrist sprain Disposition: HOME SELF-CARE Condition: Stable Instructions (If sedation given, give patient instructions): Wrist Injury (ED) Additional Instructions: Please return to the Emergency Department if symptoms worsen or any other concerns. rest ice compress and take [id number] anti-inflammatories for management. Follow-up primary care symptoms persist. Is patient prescribed a controlled substance at d/c from ED?: No Referrals: None,Stated [Primary Care Provider] - 1-2 days Time of Disposition: 23:40
== END 2020-11-02 00:04 | disposition home or self-care (01) ==
LOC: EC 21:27
DX: S63.502A Unspecified sprain of left wrist, initial encounter (principal); F17.200 Nicotine dependence, unspecified, uncomplicated; F12.90 Cannabis use, unspecified, uncomplicated; X50.1XXA Overexertion from prolonged static or awkward postures, initial encounter; Y93.84 Activity, sleeping
CPT/HCPCS: 99283